=== PATIENT | male | born 1950 | race Caucasian/White ===

== ENCOUNTER 2017-01-29 06:47 | Inpatient (IN) | payer OTHER, MEDICARE ==
[~2017-01-29] VITALS: Ht 177.8 cm; Wt 83.7 kg
[~2017-01-29 06:47] MED LIST: BACITRACIN 50,000 UNIT ONE; BUPIVACAINE/PF-EPI 0.25% 1:200K ONE; LOSA50TA6 PO; THROMBIN 5,000 UNIT VIAL TP ONE
[2017-01-29] MEDS ORDERED: LACTATED RINGERS 1,000 ML IV SCH (07:27)
[2017-01-29] MEDS ORDERED: KETAMINE 10 MG/ML, 20ML ONE (08:59)
[2017-01-29] MEDS ORDERED: FENTANYL PF 250 MCG/5ML ONE (08:59)
[2017-01-29] MEDS ORDERED: DEXAMETHASONE 4 MG/ML, 1ML ONE (09:09)
[2017-01-29] MEDS ORDERED: PROPOFOL 10 MG/ML, 20ML ONE (09:09)
[2017-01-29] MEDS ORDERED: CEFAZOLIN 1,000 MG ONE (09:09)
[2017-01-29] MEDS ORDERED: METOCLOPRAMIDE 5 MG/ML, 2ML ONE (09:09)
[2017-01-29] MEDS ORDERED: PROPOFOL 10 MG/ML, 50ML ONE (09:09)
[2017-01-29] MEDS ORDERED: ONDANSETRON 2MG/ML, 2ML ONE (09:09)
[2017-01-29] MEDS ORDERED: OXYcodone 5 MG/5 ML ORAL.SOL UDC PO PRN (10:00)
[2017-01-29] MEDS ORDERED: HYDROmorphone 1 MG/ML, 1ML IV PRN (10:00)
[2017-01-29] MEDS ORDERED: ONDANSETRON 2MG/ML, 2ML IVPush PRN (10:00)
[2017-01-29] MEDS ORDERED: LABETALOL 5MG/ML, 20ML IV PRN ×2 (10:00→13:00)
[2017-01-29] MEDS ORDERED: FENTANYL PF 100 MCG/2ML IV PRN (10:00)
[2017-01-29] MEDS ORDERED: MEPERIDINE/PF 25MG/0.5ML IVPush PRN (10:00)
[2017-01-29] MEDS ORDERED: MIDAZOLAM 1 MG/ML, 2ML IV PRN (10:00)
[2017-01-29] MEDS ORDERED: hydrALAzine 20 MG/ML, 1ML IV PRN (10:00)
[2017-01-29] MEDS ORDERED: PROMETHAZINE 25 MG/ML, 1ML IV PRN (10:00)
[2017-01-29] MEDS ORDERED: OXYcodone 5 MG/5 ML ORAL.SOL UDC ONE (12:05)
[2017-01-29] MEDS ORDERED: FENTANYL PF 100 MCG/2ML ONE (12:05)
[2017-01-29] MEDS ORDERED: HYDROcodone/APAP 5/325 TABLET PO PRN (13:00)
[2017-01-29] MEDS ORDERED: BISACODYL 10 MG SUPP PR PRN (13:00)
[2017-01-29] MEDS ORDERED: MAGNESIUM HYDROXIDE 8%, 30ML UDC PO PRN (13:00)
[2017-01-29] MEDS ORDERED: DIPHENHYDRAMINE 50 MG/ML, 1ML IVPush PRN (13:00)
[2017-01-29] MEDS: D5%-0.9% NACL+KCL 20MEQ 1,000 ML IV SCH ×2 (13:00→23:42)
[2017-01-29] MEDS ORDERED: CYCLOBENZAPRINE 10 MG TABLET PO PRN (13:00)
[2017-01-29] MEDS ORDERED: morphine SULFATE 10 MG/ML, 1ML IV PRN (13:00)
[2017-01-29] MEDS ORDERED: ONDANSETRON 2MG/ML, 2ML IV PRN (13:30)
[2017-01-29] MEDS ORDERED: ALUMINUM/MAG/SIMETHICONE 30 ML UDC PO PRN (13:30)
[2017-01-29] MEDS ORDERED: DIPHENHYDRAMINE 25 MG CAPSULE PO PRN (13:30)
[2017-01-29] MEDS: DEXAMETHASONE 4 MG/ML, 1ML IV SCH ×2 (15:49→20:06)
[2017-01-29] MEDS: HYDROcodone/APAP 10/325 MG TABLET PO PRN ×3 (15:54→23:42)
[2017-01-29 17:43] VITALS: BP 144/84
[2017-01-29] MEDS: CEFAZOLIN PMX 1GM/50ML 50 ML IVPB SCH (18:40)
[2017-01-29] MEDS: FAMOTIDINE 20 MG TABLET PO SCH (20:06)
[2017-01-29 20:28] VITALS: BP 159/85
[2017-01-30 00:20] VITALS: BP 152/83
[2017-01-30] MEDS: DEXAMETHASONE 4 MG/ML, 1ML IV SCH (01:32)
[2017-01-30] MEDS: CEFAZOLIN PMX 1GM/50ML 50 ML IVPB SCH ×3 (01:33→17:00)
[2017-01-30 04:15] VITALS: BP 145/88
[2017-01-30] MEDS: HYDROcodone/APAP 10/325 MG TABLET PO PRN ×4 (04:18→17:00)
[2017-01-30 05:27] LABS: BLOOD UREA NITROGEN 10 mg/dL (7-18)
[2017-01-30] MEDS: D5%-0.9% NACL+KCL 20MEQ 1,000 ML IV SCH ×2 (08:26→19:00)
[2017-01-30] MEDS: FAMOTIDINE 20 MG TABLET PO SCH ×2 (08:28→22:59)
[2017-01-30] MEDS: LOSARTAN 50MG TABLET PO SCH (08:28)
[2017-01-30] MEDS: SENNA/DOCUSATE TABLET PO SCH (08:28)
[2017-01-30 08:30] VITALS: BP 151/85
[2017-01-30 11:55] VITALS: BP 157/81
[2017-01-30] MEDS ORDERED: methylPREDNISolone*ACETATE* 80 MG/ML IM ONE (12:00)
[2017-01-30 17:05] VITALS: BP 151/77
[2017-01-30 20:00] VITALS: BP 160/84
[2017-01-31] MEDS: CEFAZOLIN PMX 1GM/50ML 50 ML IVPB SCH ×2 (00:53→08:57)
[2017-01-31 04:00] VITALS: BP 180/94
[2017-01-31 04:38] VITALS: BP 156/100
[2017-01-31] MEDS: D5%-0.9% NACL+KCL 20MEQ 1,000 ML IV SCH (05:00)
[2017-01-31 06:41] VITALS: BP 146/93
[2017-01-31] MEDS: FAMOTIDINE 20 MG TABLET PO SCH (09:01)
[2017-01-31] MEDS: LOSARTAN 50MG TABLET PO SCH (09:01)
[2017-01-31] MEDS: SENNA/DOCUSATE TABLET PO SCH (09:01)
[2017-01-31] MEDS ORDERED: OXYC-302 PO (10:05)
[2017-01-31] MEDS ORDERED: CYCL-259 PO (10:06)
[2017-01-31] MEDS ORDERED: CEPH-368 PO (10:07)
== END 2017-01-31 10:23 | disposition home or self-care (01) | DRG 472 ==
LOC: ORIP 06:47 → 4NOR 12:52 → DCLOUNGE 01-31 09:49
PROVIDERS: ADMIT Neurological Surgery; ATTEND Neurological Surgery
PROC: 0RB30ZZ Excision of Cervical Vertebral Disc, Open Approach (ICD-10-PCS; 2017-01-29)
PROC: 01N10ZZ Release Cervical Nerve, Open Approach (ICD-10-PCS; 2017-01-29)
PROC: 4A11X4G Monitoring of Peripheral Nervous Electrical Activity, Intraoperative, External Approach (ICD-10-PCS; 2017-01-29)
PROC: 0RG20A0 Fusion of 2 or more Cervical Vertebral Joints with Interbody Fusion Device, Anterior Approach, Anterior Column, Open Approach (ICD-10-PCS; principal; 2017-01-29 10:00)
DX: M48.02 Spinal stenosis, cervical region (principal); M50.00 Cervical disc disorder with myelopathy, unspecified cervical region; M50.11 Cervical disc disorder with radiculopathy, high cervical region; M40.202 Unspecified kyphosis, cervical region; G89.29 Other chronic pain; Z87.891 Personal history of nicotine dependence
CPT/HCPCS: 36415; 72040; 80048; 85025; 86850; 86900; C1713; J0690; J1100; J2405; J2704; J3010; C1762; J1040; J2765; J3480; J7120